=== PATIENT | female | born 1950 | race Caucasian/White ===

== ENCOUNTER 2019-10-31 19:27 | Emergency (ER) | payer BC, OTHER ==
[~2019-10-31] VITALS: Ht 160 cm; Wt 93.5 kg
[2019-10-31 19:35] VITALS: BP 147/81
--- NOTE | 2019-10-31 19:44 | NUR ---
pt ambulated to ER bed 09
--- NOTE | 2019-10-31 19:46 | NUR ---
PT C/O 12/20 INTERMITTENT DULL RUQ STARTING MONTHS AGO. STATES SHE ATE AND IT BECAME WORSE. ALL FOUR QUADRANTS HYPOACTIVE. ABDOMEN SOFT, BLOATED, NON-TENDER. DENIES N/V/D OR CONSTIPATION. 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 DENIES ALCOHOL DRUG OR TOBACCO USE. LAST BM TODAY. DENIES CP, SOB, BACK PAIN. VSS. WILL CONTINUE TO MONITOR.
--- NOTE | 2019-10-31 19:47 | NUR ---
DR DINH IN ROOM EXAMINING PT.
--- NOTE | 2019-10-31 19:48 | NUR ---
URINE COLLECTED AND SENT TO LAB.
--- NOTE | 2019-10-31 19:49 | NUR ---
PT REFUSED IV PLACEMENT NOTIFIED.
--- NOTE | 2019-10-31 19:50 | NUR ---
LAB IN ROOM DRAWING BLOOD.
--- NOTE | 2019-10-31 20:06 | NUR ---
ULTRASOUND IN ROOM WITH PT.
[2019-10-31 20:14] LABS: BASOPHILS # (AUTO) 0.1 K/uL (0.00-0.22); BASOPHILS % (AUTO) 0.8 % (0.0-2.0); EOSINOPHILS # (AUTO) 0.1 K/uL (0-0.4); EOSINOPHILS % (AUTO) 1.5 % (0.0-4.0); HEMATOCRIT 42.5 % (36-48); LYMPHOCYTES # (AUTO) 2.5 K/uL (2.5-16.5); LYMPHOCYTES % (AUTO) 35.3 % (20.5-51.1); MEAN CORPUSCULAR HEMOGLOBIN 28 pg (27-31); MEAN CORPUSCULAR HGB CONC 33 g/dL (33-37); MEAN CORPUSCULAR VOLUME 86.1 fL (80-94); MONOCYTES # (AUTO) 0.7 K/uL (0.8-1.0); MONOCYTES % (AUTO) 10.6 % (1.7-9.3); NEUTROPHILS # (AUTO) 3.6 K/uL (1.8-7.7); NEUTROPHILS % (AUTO) 51.8 % (42.2-75.2); PLATELET COUNT (AUTO) 323 K/uL (140-450); RED BLOOD CELL COUNT(AUTO) 4.94 MIL/uL (4.20-5.40); RED CELL DISTRIBUTION WIDTH 13.5 % (11.6-13.7)
--- NOTE | 2019-10-31 20:50 | NUR ---
PT TO CT.
[2019-10-31 20:52] LABS: ALBUMIN 3.9 g/dL (3.4-5.0); ANION GAP 12.2 (8-16); CARBON DIOXIDE 30.7 mmol/L (21-32); CREATININE 1.2 mg/dL (0.6-1.3); POTASSIUM 3.9 mmol/L (3.5-5.1)
--- NOTE | 2019-10-31 21:01 | NUR ---
PT RETURNED FROM CT.
[2019-10-31 21:11] LABS: TOTAL BILIRUBIN 0.3 mg/dL (0.0-1.0)
[2019-10-31 21:30] VITALS: BP 147/81
== END 2019-10-31 21:30 | disposition home or self-care (01) ==
LOC: MED 19:27
DX: K59.00 Constipation, unspecified (principal); K76.0 Fatty (change of) liver, not elsewhere classified; E06.3 Autoimmune thyroiditis
CPT/HCPCS: 36415; 74176; 76705; 80053; 83690; 84702; 85025; 99285; Q0092